=== PATIENT | female | born 1970 | race Two or more races ===

== ENCOUNTER → 2019-07-12 | Outpatient (CLI) | payer BC ==
--- NOTE | 2019-07-12 09:22 | RAD ---
Indication: Bilateral thyroid nodules. Patient here for ultrasound-guided FNA. TECHNIQUE: After explaining risks and benefits of procedure, informed consent was obtained. Ultrasound of the neck was performed. A large hypoechoic right thyroid nodule was seen. The left thyroid lobe nodule measuring 1.0 cm in maximum dimension was again seen which was posterior and lateral in the left thyroid lobe. This nodule was deemed difficult to access for FNA and hence was not biopsied. Also the nodule demonstrated no worrisome features. The skin was prepped and draped which is associated procedure. 1 percent lidocaine was used for local anesthesia. Under ultrasound guidance for FNA samples were obtained of right thyroid nodule. COMPARISON: Outside ultrasound from 2018. FINDINGS: Right thyroid nodule FNA. Left thyroid nodule deemed difficult to biopsy given its posterior lateral location and lack of significant worrisome features and was not biopsied. IMPRESSION: 1. Right thyroid nodule FNA. No immediate medications. Pathology pending. 2. Left thyroid lobe nodule not biopsied. This is a mildly suspicious and according to ACR guidelines FNA if >=2.5 cm and follow if >=1.5 cm. Follow-up left thyroid nodule ultrasound in 4-6 months recommended. Electronically signed by: Jose Maria Martinez DO (07/12/2019 9:19 AM) [facility]
--- NOTE | 2019-07-14 15:07 | PATHOLOGY ---
Note [facility] Accession Number: [id number] TESTS RESULT FLAG UNITS REF RANGE LAB Clinician Provided Cytology Information No. of containers..01 Other (Miscellaneous) Source: RT THYROID DIAGNOSIS: RT THYROID B[place]ESDA CATEGORY II: BENIGN CLUSTERS OF FOLLICULAR EPITHELIAL CELLS, SCANT COLLOID,AND RED BLOOD CELLS PRESENT. FAVOR ADENOMATOUS NODULE. THIS INTERPRETATION INCLUDES EVALUATION OF A CELL BLOCK. Signed out by: 02 Baldomero Blackwell MD, Pathologist NPI- [id number] Performed by: Azalia Garcia, [employer] ([facility]) Gross description: 01 30ML, RED, CLOUDY /LCS FLAG LEGEND: L-Low Normal,H-High Normal,LL-Alert Low,HH-Alert High <-Panic Low,>-Panic High,A-Abnormal,AA-Critical Abnormal Performed at: [facility] [address] [place] [address] Chino Hoyos MD, [address] [facility] [address] [place] [address] Baldomero Blackwell MD, Specimen Comment: A courtesy copy of this report has been sent to Specimen Comment: [phone], . Specimen Comment: Report sent to / DR GREER Specimen Comment: A duplicate report has been generated due to demographic updates. Performed at: [address] [place], [place] [address] [address], [place], [place] [id number] MD Chino Hoyos MD Phone: [phone]
== END | disposition home or self-care (01) ==
LOC: US 08:12
PROVIDERS: ATTEND Family Medicine
DX: E04.1 Nontoxic single thyroid nodule (principal)
CPT/HCPCS: 10005; 60300; 76942; 88173; 88305